=== PATIENT | female | born 1990 | race Caucasian/White ===

== ENCOUNTER → 2023-11-24 11:23 | Outpatient (REF) | payer OTHER, SELFPAY | LOC: PNTC 11:23 | PROVIDERS: ATTENDING PHYSICIAN Obstetrics & Gynecology | DX: O34.211 Maternal care for low transverse scar from previous cesarean delivery (principal); Z34.80 Encounter for supervision of other normal pregnancy, unspecified trimester; Z82.79 Family history of other congenital malformations, deformations and chromosomal abnormalities; O02.1 Missed abortion | CPT/HCPCS: 76801 ==

== ENCOUNTER 2023-11-25 06:49 | Day surgery (SDC) | payer OTHER, SELFPAY ==
[2023-11-25] VITALS (13 sets, daily range): BP systolic 97–131; BP diastolic 53–77; BMI 23.7
[2023-11-25 10:20] LABS: Hematocrit 32.8 % (37.0-47.0); Hemoglobin 11.7 g/dL (12.0-16.0)
[2023-11-25] MEDS: VIBRAMYCIN 260 MG IV (10:49)
--- NOTE | 2023-11-25 12:59 | SUR.PHASEI ---
patient comfortable in pacu, other than pressure from urge to voided, voided large amount on bedpan - vss, Dr Stallworth visits in pacu - explains procedure and plan of care.
[2023-11-25] MEDS: HYPERRHO S-D 1500 UNIT IM (16:47)
--- NOTE | 2023-11-25 17:05 | SUR.PHASEI ---
pacu addendum - patient returned to pacu for Rhogam injection - order clarified as Lab dispensing rhogam 300mcg - Dr Stallworth changed ordered, vitals assessed 98 - 80 12 116/77, rhogam given right gluteal muscle without difficult. vitals reassess
80-12 131/67 98% sat on room air. Patient and walked to discharge - accompanied by myself. comfortable with stable vitals
== END 2023-11-25 16:48 | disposition home or self-care (01) ==
LOC: SDS 06:49
PROVIDERS: ATTENDING PHYSICIAN Obstetrics & Gynecology
DX: O02.1 Missed abortion (principal)
CPT/HCPCS: 59820; 88305; 76998; 85014; 85018; 86850; 86900; 86901; J2790